=== PATIENT | female | born 1995 | race Caucasian/White ===

== ENCOUNTER 2018-09-18 23:52 | Emergency (ER) | payer SELFPAY ==
[~2018-09-18] VITALS: Ht 154.9 cm; Wt 46.7 kg
[2018-09-18 23:59] VITALS: BP 123/83; PULSE 80; RESP 20; Ht 154.9 cm; Wt 46.7 kg
== END 2018-09-19 02:22 | disposition left against medical advice (07) ==
LOC: FTE 23:52
DX: Z53.21 Procedure and treatment not carried out due to patient leaving prior to being seen by health care provider (principal)